=== PATIENT | female | born 1950 | race Caucasian/White ===

== ENCOUNTER 2018-07-10 18:42 | Inpatient (IN) ==
--- NOTE | 2018-07-10 19:28 | XR ---
EXAM DATE: 07/10/2018 7:25 PM EST AGE/SEX: 62 years / Female INDICATIONS: Cough, aspiration. CLINICAL DATA: This is the patient's initial encounter. Patient reports that signs and symptoms have been present for 1 day and indicates a pain score of Nonresponsive. MEDICAL/SURGICAL HISTORY: Non-responsive. Non-responsive. COMPARISON: No prior exams available for comparison. FINDINGS: There is mild diffuse haziness of the right lung. Mild atelectasis seen of both bases. No pneumothora x. Heart size within normal limits. Thoracic aorta is tortuous. CONCLUSION: Mild infiltrate and possible effusion on the right. Mild atelectasis of both bases. Electronically signed by: Hai Clarke MD 07/10/2018 7:26 PM EST
[2018-07-10 19:30] LABS: Baso % (Auto) 0.3 % (0.0-2.0); Hematocrit 44.6 % (35.0-46.0); Hemoglobin 15.1 gm/dL (11.6-15.3); Lymph # (Auto) 0.4 th/mm3 (1.0-4.8); Lymph % (Auto) 4.8 % (9.0-44.0); Mean Corpuscular HGB Conc 33.8 % (32.0-36.0); Mean Corpuscular Hemoglobin 30.9 pg (27.0-34.0); Mean Corpuscular Volume 91.5 fL (80.0-100.0); Mean Platelet Volume 7.7 fL (7.0-11.0); Mono # (Auto) 0.3 th/mm3 (0.0-0.9); Mono % (Auto) 3.4 % (0.0-8.0); Neut # (Auto) 7.9 th/mm3 (1.8-7.7); Neut % (Auto) 91.5 % (16.0-70.0); Platelet Count 180 th/mm3 (150-450); Red Blood Count 4.87 mil/mm3 (4.00-5.30); White Blood Count 8.6 th/mm3 (4.0-11.0)
--- NOTE | 2018-07-10 19:43 | CT ---
EXAM DATE: 07/10/2018 7:39 PM EST AGE/SEX: 62 years / Female INDICATIONS: Seizures CLINICAL DATA: This is the patient's initial encounter. Patient reports that signs and symptoms have been present for 1 day and indicates a pain score of 6/10. MEDICAL/SURGICAL HISTORY: Seizures. None. RADIATION DOSE: 32.68 CTDI (mGy) COMPARISON: No prior exams available for comparison. TECHNIQUE: CT of the head without contrast. Using automated exposure control and adjustment of the mA and/or kV according to patient size, radiation dose was kept as low as reasonably achievable to ob tain optimal diagnostic quality images. DICOM format image data is available electronically for revi ew and comparison. FINDINGS: Cerebrum: The ventricles are normal for age. No evidence of midline shift, mass lesion, hemorrhage o r acute infarction. No extraaxial fluid collections are seen. Posterior Fossa: Moderate bilateral cerebral atrophy. Brainstem is intact. The 4th ventricle is midl ine. The cerebellopontine angle is unremarkable. Extracranial: The visualized portion of the orbits is intact. Mild mucoperiosteal thickening in the left sphenoid sinus. Skull: The calvaria is intact. No evidence of skull fracture. CONCLUSION: 1. Moderate diffuse cerebral atrophy. 2. No acute intracranial abnormality.. Electronically signed by: Adonay Girard MD 07/10/2018 7:41 PM EST
[2018-07-10 19:49] LABS: Albumin 4.1 g/dL (3.4-5.0); Anion Gap 9 meq/L (5-15); Aspartate Aminotransferase 9 U/L (15-37); Blood Urea Nitrogen 11 mg/dL (7-18); Chloride 104 meq/L (98-107); Glomerular Filtration Rate 80 mL/min (>89); Glucose,Random 134 mg/dL (74-106); Potassium 3.9 meq/L (3.5-5.1); Sodium 139 meq/L (136-145)
[2018-07-10 19:50] LABS: Alanine Aminotransferase 17 U/L (10-53)
[2018-07-10 19:51] LABS: Magnesium 2.6 mg/dL (1.5-2.5)
[2018-07-10 19:52] LABS: Alkaline Phosphatase 103 U/L (45-117); Total Protein 7.5 g/dL (6.4-8.2)
--- NOTE | 2018-07-10 19:55 | ED ---
HPI General Chief Complaint: Seizure Stated Complaint: Poss Seziure/evac Time Seen by Provider: 07/10/18 18:56 Source: EMS Mode of arrival: EMS Limitations: other (Postictal) History of Present Illness HPI Narrative: Patient is a 62-year-old female presenting to the emergency department in her home on the ground by her neighbor, she had foam around her mouth. While the neighbor was there patient had 2 more approximately 30 second seizures which were described as grand mal. There was an unknown downtime prior to the neighbor finding patient. Patient has a history of seizures, per EMS patient's dose of Keppra was just adjusted, is uncertain if it was titrated up or down. Patient presents postictal, H&P is limited due to this. Past medical history significant for seizures, atrial fibrillation. MD complaint: Reports seizure Onset (ago): hour(s) Description of Episode: Reports tonic-clonic movement and post-event confusion Witnessed: no (initial seizure was not witnessed) and yes - by bystander (2 were witnessed by neighbor) Seizure History: Reports known seizure disorder and compliant with medication Place: home Treatments prior to arrival: Reports none Related Data Home Medications Medication Instructions Recorded Confirmed Unable to Obtain Home Meds 07/10/18 07/10/18 Allergies Allergy/AdvReac Type Severity Reaction Status Date / Time No Known Allergies Allergy Verified 07/10/18 19:00 Review of Systems ROS Unobtainable ROS Unobtainable: other (limited due to post-ictal state) [facility] Medical History Medical History Atrial fibrillation (Acute) Seizure (Acute) Surgical history unknown (Acute) Social History Social History Smoking Status: Unknown if ever smoked How Often Do You Have a Drink Containing Alcohol: Unable to Obtain Recent Travel in [facility] within the Last 8 Weeks: No Recent Out of Country Travel within the Last 8 Weeks: No Immunization History Tetanus Immunization: Unable to Assess Exam Narrative Exam Narrative: GENERAL: Well-developed, well-nourished, alert female. Presenting in no acute distress. SKIN: Focused skin assessment warm/dry. HEAD: Atraumatic. Normocephalic. EYES: Pupils equal and round. No scleral icterus. No injection or drainage. ENT: No nasal bleeding or discharge. Mucous membranes pink and moist. NECK: Trachea midline. No JVD. CARDIOVASCULAR: Regular rate and rhythm. No murmur appreciated. RESPIRATORY: No accessory muscle use. Clear to auscultation. Breath sounds equal bilaterally. GASTROINTESTINAL: Abdomen soft, non-tender, nondistended. Hepatic and splenic margins not palpable. MUSCULOSKELETAL: No obvious deformities. No clubbing. No cyanosis. No edema. NEUROLOGICAL: Awake and alert. Aphasic, 3 out of 5 accident investigator strength on the left upper extremity. Moving lower extremities, does not follow commands. Left facial droop. PSYCHIATRIC: Appropriate mood and affect; insight and judgment normal. Course Initial Documented Vital Signs Temperature 98.2 F 07/10/18 18:58 Pulse Rate 86 07/10/18 18:58 Respiratory Rate 18 07/10/18 18:58 Blood Pressure 134/72 07/10/18 18:58 Pulse Oximetry 100 07/10/18 18:58 Last Documented Vital Signs Temperature 97.9 F 07/12/18 11:00 Pulse Rate 73 07/12/18 11:00 Respiratory Rate 16 07/12/18 11:00 Blood Pressure 155/98 H 07/12/18 11:00 Pulse Oximetry 98 07/12/18 11:00 Critical Care Time Critical Care Time: Yes Total Critical Care Time: 30 Attestation: Aggregate critical care time was 30 minutes. Time to perform other separately billable procedures was not included in the critical care time. My time did not include minutes spent treating any other patients simultaneously or on activities that did not directly contribute to the patient's treatment. The services I provided to this patient were to treat and/or prevent clinically significant deterioration that could result in: , decompensation, deterioration I provided critical care services requiring my management, as noted below: Chart data review, documentation time, medication orders and management, vital sign assessments/reviewing monitor data, ordering and reviewing lab tests, ordering and interpreting/reviewing x-rays and diagnostic studies, care of the patient and discussion of the patient with the admitting physicians. Medical Decision Making LAURA Attestation LAURA supervised visit: Yes Attestation: I, Dr. Marshall, have reviewed the advance practice practitioner's documentation and am in agreement, met with the patient face to face, made the diagnosis, and the medical decision making was done by me. *My assessment and Findings: Patient is a 62-year-old female who presents the emergency room after she was found down in her house by her neighbor. Patient was apparently unresponsive and was foaming at the mouth. Patient's neighbor then witnessed her have a grand mal seizure which lasted about 30 seconds. Patient presents the emergency room post ictal, she had another seizure episode which lasted about 30 seconds. As per , patient may not be taking her Keppra as prescribed. Patient will be given at 1500 mg loading dose of IV Keppra, she was also given 2 mg of IV Ativan during her seizure episode. Patient will require admission to the hospital for treatment of status epilepticus. In addition, patient was found to have a pneumonia on her x-ray of the chest. There is a mild infiltrate and possible effusion on the right, she has been pancultured and given a dose of azithromycin as well as Rocephin. [facility] Narrative Medical decision making narrative: Patient is a 62-year-old female with a known history of seizures presenting after 2 witnessed seizures and likely third with an unknown downtime. Patient presented with left-sided deficits and facial drooping, she is currently aphasic. CT of the brain ordered to assess acute CVA in addition to labs and imaging including CXR to r/o aspiration. CXR shows mild infiltrate and possible effusion on the right. Pt was started on azithromycin and rocephin. CT of the brain with diffuse atrophy, no acute findings. 1999- pt had witnessed seizure, ativan 2mg IV x 1 dose. called and spoke to RN, he states he doesn't believe she is compliant with medications. Keppra 1500mg IV x 1 dose ordered. Case reviewed with Dr. Rogers who accepts pt to service Patient has not had any further seizure activity. Medical Screen Exam Complete: Yes Emergency Medical Condition: Yes Differential Diagnosis Differential Diagnosis: Seizure disorder versus metabolic abnormality versus Otoniel's palsy versus CVA versus arrhythmia versus other Lab Data Result diagrams: 07/12/18 04:01 07/12/18 04:01 Lab Results 07/10/18 07/10/18 07/10/18 Range/Units 19:16 19:16 19:16 WBC 8.6 (4.0-11.0) th/mm3 RBC 4.87 (4.00-5.30) mil/mm3 Hgb 15.1 (11.6-15.3) gm/dL Hct 44.6 (35.0-46.0) % MCV 91.5 (80.0-100.0) fL MCH 30.9 (27.0-34.0) pg MCHC 33.8 (32.0-36.0) % RDW 14.0 (11.6-17.2) % Plt Count 180 (150-450) th/mm3 MPV 7.7 (7.0-11.0) fL Neut % (Auto) 91.5 H (16.0-70.0) % Lymph % (Auto) 4.8 L (9.0-44.0) % [place] % (Auto) 3.4 (0.0-8.0) % Eos % (Auto) 0.0 (0.0-4.0) % Baso % (Auto) 0.3 (0.0-2.0) % Neut # (Auto) 7.9 H (1.8-7.7) th/mm3 Lymph # (Auto) 0.4 L (1.0-4.8) th/mm3 [place] # (Auto) 0.3 (0.0-0.9) th/mm3 Eos # (Auto) 0.0 (0.0-0.4) th/mm3 Baso # (Auto) 0.0 (0.0-0.2) th/mm3 WBC Differential . Differential Comment Auto diff final PT (9.8-11.6) sec INR Ratio Sodium 139 (136-145) meq/L Potassium 3.9 (3.5-5.1) meq/L Chloride 104 (98-107) meq/L Carbon Dioxide 26.0 (21.0-32.0) meq/L Anion Gap 9 (5-15) meq/L BUN 11 (7-18) mg/dL Creatinine 0.74 (0.50-1.00) mg/dL Estimated GFR 80 L (>89) mL/min POC Glucose (68-110) mg/dl Random Glucose 134 H (74-106) mg/dL Lactic Acid 2.1 H (0.4-2.0) mmol/L Calcium 9.0 (8.5-10.1) mg/dL Magnesium (1.5-2.5) mg/dL Total Bilirubin 0.3 (0.2-1.0) mg/dL AST 9 L (15-37) U/L ALT 17 (10-53) U/L Alkaline Phosphatase 103 (45-117) U/L Total Creatine Kinase (26-192) U/L Troponin I (0.02-0.05) ng/mL Total Protein 7.5 (6.4-8.2) g/dL Albumin 4.1 (3.4-5.0) g/dL Urine Color (Yellw/Straw) Urine Clarity (Clear) Urine pH (5.0-8.5) Ur Specific Norton (1.002-1.035) Urine Protein (Neg-Trace) mg/dL Urine Glucose (UA) (Negative) mg/dL Urine Ketones (Negative) mg/dL Urine Occult Blood (Negative) Urine Nitrate (Negative) Urine Bilirubin (Negative) Urine Urobilinogen (Less than 2) mg/dL Ur Leukocyte Esterase (Negative) Urine RBC (0-3) /hpf Urine WBC (0-5) /hpf Urine Bacteria (None) /hpf Urine Mucus (Occasional) /lpf Ur Microscopic Review Urine Opiates Screen (Neg) Ur Barbiturates Screen (Neg) Ur Amphetamines Screen (Neg) U Benzodiazepines Scrn (Neg) Urine Cocaine Screen (Neg) U Cannabinoids Screen (Neg) Serum Alcohol Less than 3 (0-5) mg/dL 07/10/18 07/10/18 07/10/18 Range/Units 19:16 19:16 19:21 WBC (4.0-11.0) th/mm3 RBC (4.00-5.30) mil/mm3 Hgb (11.6-15.3) gm/dL Hct (35.0-46.0) % MCV (80.0-100.0) fL MCH (27.0-34.0) pg MCHC (32.0-36.0) % RDW (11.6-17.2) % Plt Count (150-450) th/mm3 MPV (7.0-11.0) fL Neut % (Auto) (16.0-70.0) % Lymph % (Auto) (9.0-44.0) % [place] % (Auto) (0.0-8.0) % Eos % (Auto) (0.0-4.0) % Baso % (Auto) (0.0-2.0) % Neut # (Auto) (1.8-7.7) th/mm3 Lymph # (Auto) (1.0-4.8) th/mm3 [place] # (Auto) (0.0-0.9) th/mm3 Eos # (Auto) (0.0-0.4) th/mm3 Baso # (Auto) (0.0-0.2) th/mm3 WBC Differential Differential Comment PT (9.8-11.6) sec INR Ratio Sodium (136-145) meq/L Potassium (3.5-5.1) meq/L Chloride (98-107) meq/L Carbon Dioxide (21.0-32.0) meq/L Anion Gap (5-15) meq/L BUN (7-18) mg/dL Creatinine (0.50-1.00) mg/dL Estimated GFR (>89) mL/min POC Glucose 126 H (68-110) mg/dl Random Glucose (74-106) mg/dL Lactic Acid (0.4-2.0) mmol/L Calcium (8.5-10.1) mg/dL Magnesium 2.6 H (1.5-2.5) mg/dL Total Bilirubin (0.2-1.0) mg/dL AST (15-37) U/L ALT (10-53) U/L Alkaline Phosphatase (45-117) U/L Total Creatine Kinase 164 (26-192) U/L Troponin I Less than 0.02 L (0.02-0.05) ng/mL Total Protein (6.4-8.2) g/dL Albumin (3.4-5.0) g/dL Urine Color (Yellw/Straw) Urine Clarity (Clear) Urine pH (5.0-8.5) Ur Specific Norton (1.002-1.035) Urine Protein (Neg-Trace) mg/dL Urine Glucose (UA) (Negative) mg/dL Urine Ketones (Negative) mg/dL Urine Occult Blood (Negative) Urine Nitrate (Negative) Urine Bilirubin (Negative) Urine Urobilinogen (Less than 2) mg/dL Ur Leukocyte Esterase (Negative) Urine RBC (0-3) /hpf Urine WBC (0-5) /hpf Urine Bacteria (None) /hpf Urine Mucus (Occasional) /lpf Ur Microscopic Review Urine Opiates Screen (Neg) Ur Barbiturates Screen (Neg) Ur Amphetamines Screen (Neg) U Benzodiazepines Scrn (Neg) Urine Cocaine Screen (Neg) U Cannabinoids Screen (Neg) Serum Alcohol (0-5) mg/dL 07/10/18 07/10/18 07/11/18 Range/Units 21:04 21:04 05:28 WBC 6.8 (4.0-11.0) th/mm3 RBC 4.49 (4.00-5.30) mil/mm3 Hgb 13.8 (11.6-15.3) gm/dL Hct 41.2 (35.0-46.0) % MCV 91.8 (80.0-100.0) fL MCH 30.8 (27.0-34.0) pg MCHC 33.6 (32.0-36.0) % RDW 13.9 (11.6-17.2) % Plt Count 175 (150-450) th/mm3 MPV 8.2 (7.0-11.0) fL Neut % (Auto) 75.4 H (16.0-70.0) % Lymph % (Auto) 15.4 (9.0-44.0) % [place] % (Auto) 8.8 H (0.0-8.0) % Eos % (Auto) 0.0 (0.0-4.0) % Baso % (Auto) 0.4 (0.0-2.0) % Neut # (Auto) 5.1 (1.8-7.7) th/mm3 Lymph # (Auto) 1.0 (1.0-4.8) th/mm3 [place] # (Auto) 0.6 (0.0-0.9) th/mm3 Eos # (Auto) 0.0 (0.0-0.4) th/mm3 Baso # (Auto) 0.0 (0.0-0.2) th/mm3 WBC Differential . Differential Comment Auto diff final PT (9.8-11.6) sec INR Ratio Sodium (136-145) meq/L Potassium (3.5-5.1) meq/L Chloride (98-107) meq/L Carbon Dioxide (21.0-32.0) meq/L Anion Gap (5-15) meq/L BUN (7-18) mg/dL Creatinine (0.50-1.00) mg/dL Estimated GFR (>89) mL/min POC Glucose (68-110) mg/dl Random Glucose (74-106) mg/dL Lactic Acid (0.4-2.0) mmol/L Calcium (8.5-10.1) mg/dL Magnesium (1.5-2.5) mg/dL Total Bilirubin (0.2-1.0) mg/dL AST (15-37) U/L ALT (10-53) U/L Alkaline Phosphatase (45-117) U/L Total Creatine Kinase (26-192) U/L Troponin I (0.02-0.05) ng/mL Total Protein (6.4-8.2) g/dL Albumin (3.4-5.0) g/dL Urine Color Yellow (Yellw/Straw) Urine Clarity Clear (Clear) Urine pH 6.0 (5.0-8.5) Ur Specific Norton 1.016 (1.002-1.035) Urine Protein 30 H (Neg-Trace) mg/dL Urine Glucose (UA) Negative (Negative) mg/dL Urine Ketones Trace H (Negative) mg/dL Urine Occult Blood Negative (Negative) Urine Nitrate Negative (Negative) Urine Bilirubin Negative (Negative) Urine Urobilinogen Less than 2 (Less than 2) mg/dL Ur Leukocyte Esterase Negative (Negative) Urine RBC 1 (0-3) /hpf Urine WBC 3 (0-5) /hpf Urine Bacteria Rare H (None) /hpf Urine Mucus Few H (Occasional) /lpf Ur Microscopic Review Not Reportable Urine Opiates Screen Neg (Neg) Ur Barbiturates Screen Neg (Neg) Ur Amphetamines Screen Neg (Neg) U Benzodiazepines Scrn Neg (Neg) Urine Cocaine Screen Neg (Neg) U Cannabinoids Screen Neg (Neg) Serum Alcohol (0-5) mg/dL 07/11/18 07/11/18 07/11/18 Range/Units 05:28 05:28 13:42 WBC (4.0-11.0) th/mm3 RBC (4.00-5.30) mil/mm3 Hgb (11.6-15.3) gm/dL Hct (35.0-46.0) % MCV (80.0-100.0) fL MCH (27.0-34.0) pg MCHC (32.0-36.0) % RDW (11.6-17.2) % Plt Count (150-450) th/mm3 MPV (7.0-11.0) fL Neut % (Auto) (16.0-70.0) % Lymph % (Auto) (9.0-44.0) % [place] % (Auto) (0.0-8.0) % Eos % (Auto) (0.0-4.0) % Baso % (Auto) (0.0-2.0) % Neut # (Auto) (1.8-7.7) th/mm3 Lymph # (Auto) (1.0-4.8) th/mm3 [place] # (Auto) (0.0-0.9) th/mm3 Eos # (Auto) (0.0-0.4) th/mm3 Baso # (Auto) (0.0-0.2) th/mm3 WBC Differential Differential Comment PT 10.6 (9.8-11.6) sec INR 1.0 Ratio Sodium 143 (136-145) meq/L Potassium 2.9 L* D 3.5 (3.5-5.1) meq/L Chloride 109 H (98-107) meq/L Carbon Dioxide 24.5 (21.0-32.0) meq/L Anion Gap 10 (5-15) meq/L BUN 7 (7-18) mg/dL Creatinine 0.52 (0.50-1.00) mg/dL Estimated GFR Greater than 89 (>89) mL/min POC Glucose (68-110) mg/dl Random Glucose 101 (74-106) mg/dL Lactic Acid (0.4-2.0) mmol/L Calcium 8.2 L D (8.5-10.1) mg/dL Magnesium (1.5-2.5) mg/dL Total Bilirubin (0.2-1.0) mg/dL AST (15-37) U/L ALT (10-53) U/L Alkaline Phosphatase (45-117) U/L Total Creatine Kinase (26-192) U/L Troponin I (0.02-0.05) ng/mL Total Protein (6.4-8.2) g/dL Albumin (3.4-5.0) g/dL Urine Color (Yellw/Straw) Urine Clarity (Clear) Urine pH (5.0-8.5) Ur Specific [place] (1.002-1.035) Urine Protein (Neg-Trace) mg/dL Urine Glucose (UA) (Negative) mg/dL Urine Ketones (Negative) mg/dL Urine Occult Blood (Negative) Urine Nitrate (Negative) Urine Bilirubin (Negative) Urine Urobilinogen (Less than 2) mg/dL Ur Leukocyte Esterase (Negative) Urine RBC (0-3) /hpf Urine WBC (0-5) /hpf Urine Bacteria (None) /hpf Urine Mucus (Occasional) /lpf Ur Microscopic Review Urine Opiates Screen (Neg) Ur Barbiturates Screen (Neg) Ur Amphetamines Screen (Neg) U Benzodiazepines Scrn (Neg) Urine Cocaine Screen (Neg) U Cannabinoids Screen (Neg) Serum Alcohol (0-5) mg/dL 07/12/18 07/12/18 Range/Units 04:01 04:01 WBC 3.7 L (4.0-11.0) th/mm3 RBC 4.46 (4.00-5.30) mil/mm3 Hgb 13.6 (11.6-15.3) gm/dL Hct 41.1 (35.0-46.0) % MCV 92.3 (80.0-100.0) fL MCH 30.6 (27.0-34.0) pg MCHC 33.2 (32.0-36.0) % RDW 13.6 (11.6-17.2) % Plt Count 143 L (150-450) th/mm3 MPV 8.2 (7.0-11.0) fL Neut % (Auto) 59.3 (16.0-70.0) % Lymph % (Auto) 31.4 (9.0-44.0) % [place] % (Auto) 8.4 H (0.0-8.0) % Eos % (Auto) 0.2 (0.0-4.0) % Baso % (Auto) 0.7 (0.0-2.0) % Neut # (Auto) 2.2 (1.8-7.7) th/mm3 Lymph # (Auto) 1.2 (1.0-4.8) th/mm3 [place] # (Auto) 0.3 (0.0-0.9) th/mm3 Eos # (Auto) 0.0 (0.0-0.4) th/mm3 Baso # (Auto) 0.0 (0.0-0.2) th/mm3 WBC Differential . Differential Comment Auto diff final PT (9.8-11.6) sec INR Ratio Sodium 141 (136-145) meq/L Potassium 3.3 L (3.5-5.1) meq/L Chloride 109 H (98-107) meq/L Carbon Dioxide 24.6 (21.0-32.0) meq/L Anion Gap 7 (5-15) meq/L BUN 5 L (7-18) mg/dL Creatinine 0.53 (0.50-1.00) mg/dL Estimated GFR Greater than 89 (>89) mL/min POC Glucose (68-110) mg/dl Random Glucose 89 (74-106) mg/dL Lactic Acid (0.4-2.0) mmol/L Calcium 8.1 L (8.5-10.1) mg/dL Magnesium (1.5-2.5) mg/dL Total Bilirubin 0.3 (0.2-1.0) mg/dL AST 12 L (15-37) U/L ALT 11 (10-53) U/L Alkaline Phosphatase 81 (45-117) U/L Total Creatine Kinase (26-192) U/L Troponin I (0.02-0.05) ng/mL Total Protein 6.2 L D (6.4-8.2) g/dL Albumin 3.3 L D (3.4-5.0) g/dL Urine Color (Yellw/Straw) Urine Clarity (Clear) Urine pH (5.0-8.5) Ur Specific Norton (1.002-1.035) Urine Protein (Neg-Trace) mg/dL Urine Glucose (UA) (Negative) mg/dL Urine Ketones (Negative) mg/dL Urine Occult Blood (Negative) Urine Nitrate (Negative) Urine Bilirubin (Negative) Urine Urobilinogen (Less than 2) mg/dL Ur Leukocyte Esterase (Negative) Urine RBC (0-3) /hpf Urine WBC (0-5) /hpf Urine Bacteria (None) /hpf Urine Mucus (Occasional) /lpf Ur Microscopic Review Urine Opiates Screen (Neg) Ur Barbiturates Screen (Neg) Ur Amphetamines Screen (Neg) U Benzodiazepines Scrn (Neg) Urine Cocaine Screen (Neg) U Cannabinoids Screen (Neg) Serum Alcohol (0-5) mg/dL Imaging Data Radiologist's impression: Head CT 07/10/18 19:00 CONCLUSION: 1. Moderate diffuse cerebral atrophy. 2. No acute intracranial abnormality.. Chest X-Ray 07/10/18 19:02 CONCLUSION: Mild infiltrate and possible effusion on the right. Mild atelectasis of both bases. Discharge Plan Discharge Disposition Patient Disposition: ED Admit(ED Internal Use Only) Discharge Condition Condition: Stable Discharge Order Discharge Orders: ED Use Only Admit Order (Routine); Ordered 07/10/18 Ordered By: Genet Marshall Physicians Team ED Provider: Genet Marshall ED Midlevel Provider: Evelyne Lopez Primary Care Provider: UNKNOWN, Attending Provider: Geoffrey Paulino Other Providers: Adilson De Anda ; Fallon Ferrera Status ED Status: Left Department Discharge Information Discharge Date/Time: 07/11/18 02:17
[2018-07-10] MEDS ORDERED: Sod Chloride 0.9% Inj 1,000 ML IV.SIG SCH (20:00)
[2018-07-10] MEDS ORDERED: Azithromycin Inj 500 MG in Sodium Chlor 0.9% Inj 250 ML IV.SIG ONE (20:01)
[2018-07-10] MEDS ORDERED: levETIRAcetam 1000mg/100mL Inj 100 ML IV.SIG ONE (20:07)
--- NOTE | 2018-07-10 21:22 | ECG ---
Date Performed: 07/10/2018 Time Performed: 20:02:27 PTAGE: 62 years EKG: Sinus rhythm NONSPECIFIC ST & T-WAVE ABNORMALITY BORDERLINE ECG NO PREVIOUS TRACING DOCTOR: Swapna De La Cruz Interpretating Date/Time 07/10/2018 21:21:27
[2018-07-10 21:24] LABS: Bacteria,Urine Rare /hpf; Bilirubin,Urine Negative (Negative); Clarity,Urine Clear (Clear); Color,Urine Yellow (Yellw/Straw); Glucose,Urine (UA) Negative (Negative); Leukocyte Esterase,Urine Negative (Negative); Mucus,Urine Few /lpf (Occasional); Nitrite,Urine Negative (Negative); Specific Gravity,Urine 1.016 (1.002-1.035)
[2018-07-10 21:27] LABS: Amphetamine Screen,Urine Neg (Neg); Barbiturate Screen,Urine Neg (Neg); Cannabinoid Screen,Urine Neg (Neg); Cocaine Screen,Urine Neg (Neg)
[2018-07-10 21:51] LABS: Opiate Screen,Urine Neg (Neg)
[2018-07-10] MEDS ORDERED: Dextrose 50% in Water 50 ML Vial IV.PUSH PRN (23:01)
[2018-07-10] MEDS ORDERED: Bisacodyl 10 MG Supp RECTAL PRN (23:01)
[2018-07-10] MEDS: Sod Chloride 0.9% Inj 1,000 ML IV.CONT SCH (23:18)
[2018-07-10] MEDS: Azithromycin Inj 500 MG in Sodium Chlor 0.9% Inj 250 ML IV.SIG SCH (23:53)
--- NOTE | 2018-07-10 23:57 | P.HP ---
History of Present Illness Primary Care Physician: UNKNOWN Chief Complaint: seizures History of Present Illness: 62-year-old female with history of seizures, atrial fibrillation on unknown anticoagulation, presents after being found on the ground by her neighbor. History is limited as the patient is postictal, drowsy, unable to provide any history. Per HEALTH ANALYST who discussed with the patient's , he reports a history of seizures, reportedly on unknown dose of Keppra. travels for work and questions patient's compliance with Keppra. He also reports that she is on an unknown anticoagulation for her atrial fibrillation. Reportedly the patient was found on the ground by her neighbor with foam around the mouth. The neighbor then also witnessed 2 more seizure episodes that lasted 30 seconds each, described as grand mal tonic-clonic movements. No other history is reported. Review of systems limited. Most of medical history obtained from EMR. Inpatient Certification: I certify that the inpatient services were ordered in accordance with Medicare regulations governing the order. This includes certification that hospital inpatient services are reasonable and necessary and in the case of services not specified as inpatient-only under 42 CFR 419.22(n), that they are appropriately provided as inpatient services in accordance to with the 2-midnight benchmark under 43 CFR 412.3(e) Estimated Total Length of Stay (Days): 3 Plans for Post Hospital Care: Home Review of Systems unobtainable due to mental status PMFSH - History History Provided By: Significant Other, Medical Record - Medical / Surgical Hx Neg / Unobtainable Medical Problems Denied: Unable to Obtain Surgical History: Unable to Obtain - Medical History Medical History: Medical History (Last Reviewed 07/10/18 @ 23:39 by aKtja Belcher) Atrial fibrillation Seizure Surgical history unknown - Family History Family History: Family History (Last Updated 07/10/18 @ 23:44 by Katja Belcher) Other Unknown family medical history - Social History I have reviewed the patient's Social History: Yes - Tobacco History Smoking Status: Unknown if ever smoked - Alcohol History How Often Do You Have a Drink Containing Alcohol: Unable to Obtain - Travel History Recent Travel in the [place] Within the Last 8 Weeks: No Recent Travel Out of the Country Within the Last 8 Weeks: No - Immunization History Tetanus Immunization: Unable to Assess Medications and Allergies Active Medications: Active Medications Acetaminophen (Tylenol) 650 mg PO Q4H PRN PRN Reason: headache/fever/pain1-4 Al Hydroxide/Mg Hydroxide (Milk Of Magnesia Liq) 30 ml PO Q12H PRN PRN Reason: Mild Constipation Bisacodyl (Dulcolax Supp) 10 mg RECTAL DAILY PRN PRN Reason: SEVERE CONSITIPATION Dextrose (D50w Vial) 50 ml IV.PUSH UNSCH PRN PRN Reason: PER HYPOGLYCEMIA PROTOCOL Glucagon (Glucagon Inj) 1 mg OTHER PRN PRN PRN Reason: for Hypoglycemia Protocol Sodium Chloride (Ns Inj) 1,000 mls @ 100 mls/hr IV.CONT .Q10H BIN Last Admin: 07/10/18 23:18 Dose: 100 mls/hr Lactulose (Lactulose Liq) 30 ml PO DAILY PRN PRN Reason: SEVERE CONSITIPATION Levetiracetam (Keppra) 500 mg PO BID BIN Lorazepam (Ativan Inj) 1 mg IV.PUSH Q10M PRN PRN Reason: SEE LABEL COMMENTS Ondansetron HCl (Zofran Inj) 4 mg IV.PUSH Q6H PRN PRN Reason: NAUSEA OR VOMITING Senna/Docusate Sodium (Milana-Colace) 1 tab PO BID [facility] Sennosides (Senokot) 17.2 mg PO Q12H PRN PRN Reason: Moderate Constipation Sodium Chloride (Ns Flush) 2 ml IV.FLUSH PRN PRN PRN Reason: FLUSH AFTER USING IV ACCESS Sodium Chloride (Ns Flush) 2 ml IV.FLUSH BID [facility] Allergies Allergy/AdvReac Type Severity Reaction Status Date / Time No Known Allergies Allergy Verified 07/10/18 19:00 Home Medications Medication Instructions Recorded Confirmed Type Unable to Obtain Home Meds 07/10/18 07/10/18 History Exam Vital signs: Vital Signs 07/10/18 18:58 07/10/18 19:02 07/10/18 19:13 Temperature 98.2 F Pulse Rate 86 84 Respiratory Rate 18 16 Blood Pressure 134/72 169/87 H Pulse Oximetry 100 98 98 07/10/18 20:02 07/10/18 20:57 07/10/18 21:46 Temperature Pulse Rate 81 78 83 Respiratory Rate 16 24 26 H Blood Pressure 127/60 148/87 H 159/82 H Pulse Oximetry 98 100 100 07/10/18 22:26 07/10/18 23:00 Temperature Pulse Rate 82 83 Respiratory Rate 24 Blood Pressure 164/90 H 165/89 H Pulse Oximetry 100 Intake & Output 07/10/18 07/10/18 07/11/18 06:59 18:59 06:59 Intake Total 1555 / 1555 Balance 1555 / 1555 Weight 65.771 kg Intake: IV 1555 / 1555 Azithromycin Inj 500 MG In NS 250 / 250 Inj 250 ML @ 250 mls/hr IV.SIG ONCE ONE Rx#:[id number] NS Inj 1,000 ML @ 1000 mls/hr 1000 / 1000 IV.SIG BOLUS BIN Rx#:[id number] Rocephin Inj 1,000 MG In NS Inj 100 / 100 100 ML @ 200 mls/hr IV.SIG ONCE ONE Rx#:[id number] Keppra 1000 mg/100 mL Premix 100 / 100 100 ML @ 400 mls/hr IV.SIG ONCE ONE Rx#:[id number] Keppra Inj 500 MG In NS Inj 100 105 / 105 ML @ 400 mls/hr IV.SIG ONCE ONE Rx#:[id number] Narrative: GENERAL: Well-nourished, well-developed female patient in [facility]. SKIN: Warm and dry. No rash. HEENT: Normocephalic. Atraumatic. Pupils equal and round. Mucous membranes pink and moist. NECK: Supple. Trachea midline. CARDIOVASCULAR: Regular rate and rhythm. No murmur appreciated. RESPIRATORY: No accessory muscle use. Clear to auscultation. Breath sounds equal bilaterally. GASTROINTESTINAL: Abdomen soft, non-tender, nondistended. Normoactive bowel sounds x4. MUSCULOSKELETAL: No obvious deformities. Extremities without clubbing, cyanosis , or edema. NEUROLOGICAL: Drowsy/sedated. No obvious cranial nerve deficits. Results - Labs CBC & Chem 7: 07/10/18 19:16 07/10/18 19:16 Labs: Laboratory Results - last 24 hr 07/10/18 07/10/18 07/10/18 19:16 19:16 19:16 WBC 8.6 RBC 4.87 Hgb 15.1 Hct 44.6 MCV 91.5 MCH 30.9 MCHC 33.8 RDW 14.0 Plt Count 180 MPV 7.7 Neut % (Auto) 91.5 H Lymph % (Auto) 4.8 L Park % (Auto) 3.4 Eos % (Auto) 0.0 Baso % (Auto) 0.3 Neut # (Auto) 7.9 H Lymph # (Auto) 0.4 L Park # (Auto) 0.3 Eos # (Auto) 0.0 Baso # (Auto) 0.0 WBC Differential . Differential Comment Auto diff final Sodium 139 Potassium 3.9 Chloride 104 Carbon Dioxide 26.0 Anion Gap 9 BUN 11 Creatinine 0.74 Estimated GFR 80 L POC Glucose Random Glucose 134 H Lactic Acid 2.1 H Calcium 9.0 Magnesium Total Bilirubin 0.3 AST 9 L ALT 17 Alkaline Phosphatase 103 Total Creatine Kinase Troponin I Total Protein 7.5 Albumin 4.1 Urine Color Urine Clarity Urine pH Ur Specific [place] Urine Protein Urine Glucose (UA) Urine Ketones Urine Occult Blood Urine Nitrate Urine Bilirubin Urine Urobilinogen Ur Leukocyte Esterase Urine RBC Urine WBC Urine Bacteria Urine Mucus Ur Microscopic Review Urine Opiates Screen Ur Barbiturates Screen Ur Amphetamines Screen U Benzodiazepines Scrn Urine Cocaine Screen U Cannabinoids Screen Serum Alcohol Less than 3 07/10/18 07/10/18 07/10/18 19:16 19:16 19:21 WBC RBC Hgb Hct MCV MCH MCHC RDW Plt Count MPV Neut % (Auto) Lymph % (Auto) Park % (Auto) Eos % (Auto) Baso % (Auto) Neut # (Auto) Lymph # (Auto) Park # (Auto) Eos # (Auto) Baso # (Auto) WBC Differential Differential Comment Sodium Potassium Chloride Carbon Dioxide Anion Gap BUN Creatinine Estimated GFR POC Glucose 126 H Random Glucose Lactic Acid Calcium Magnesium 2.6 H Total Bilirubin AST ALT Alkaline Phosphatase Total Creatine Kinase 164 Troponin I Less than 0.02 L Total Protein Albumin Urine Color Urine Clarity Urine pH Ur Specific [place] Urine Protein Urine Glucose (UA) Urine Ketones Urine Occult Blood Urine Nitrate Urine Bilirubin Urine Urobilinogen Ur Leukocyte Esterase Urine RBC Urine WBC Urine Bacteria Urine Mucus Ur Microscopic Review Urine Opiates Screen Ur Barbiturates Screen Ur Amphetamines Screen U Benzodiazepines Scrn Urine Cocaine Screen U Cannabinoids Screen Serum Alcohol 07/10/18 07/10/18 21:04 21:04 WBC RBC Hgb Hct MCV MCH MCHC RDW Plt Count MPV Neut % (Auto) Lymph % (Auto) Park % (Auto) Eos % (Auto) Baso % (Auto) Neut # (Auto) Lymph # (Auto) Park # (Auto) Eos # (Auto) Baso # (Auto) WBC Differential Differential Comment Sodium Potassium Chloride Carbon Dioxide Anion Gap BUN Creatinine Estimated GFR POC Glucose Random Glucose Lactic Acid Calcium Magnesium Total Bilirubin AST ALT Alkaline Phosphatase Total Creatine Kinase Troponin I Total Protein Albumin Urine Color Yellow Urine Clarity Clear Urine pH 6.0 Ur Specific [place] 1.016 Urine Protein 30 H Urine Glucose (UA) Negative Urine Ketones Trace H Urine Occult Blood Negative Urine Nitrate Negative Urine Bilirubin Negative Urine Urobilinogen Less than 2 Ur Leukocyte Esterase Negative Urine RBC 1 Urine WBC 3 Urine Bacteria Rare H Urine Mucus Few H Ur Microscopic Review Not Reportable Urine Opiates Screen Neg Ur Barbiturates Screen Neg Ur Amphetamines Screen Neg U Benzodiazepines Scrn Neg Urine Cocaine Screen Neg U Cannabinoids Screen Neg Serum Alcohol - Imaging Impressions Head CT 07/10/18 19:00 CONCLUSION: 1. Moderate diffuse cerebral atrophy. 2. No acute intracranial abnormality.. Chest X-Ray 07/10/18 19:02 CONCLUSION: Mild infiltrate and possible effusion on the right. Mild atelectasis of both bases. Caprini VTE Risk Assessment Caprini VTE Risk Assessment: Moderate/High Risk (score >= 2) Caprini Risk Assessment Model: Point Value = 1 Point Value = 2 Point Value = 3 Point Value = 5 Age 41-60 Minor surgery BMI > 25 kg/m2 Swollen legs Varicose veins or History of unexplained or recurrent spontaneous Oral contraceptives or hormone replacement Sepsis (< 1 month) Serious lung disease, including pneumonia (< 1 month) Abnormal pulmonary function Acute myocardial infarction Congestive heart failure (< 1 month) History of inflammatory bowel disease Medical patient at bed rest Age 61-74 Arthroscopic surgery Major open surgery (> 45 min) Laparoscopic surgery (> 45 min) Malignancy Confined to bed (> 72 hours) Immobilizing plaster cast Central venous access Age >= 75 History of VTE Family history of VTE Factor V Leiden Prothrombin [id number] Lupus anticoagulant Anticardiolipin antibodies Elevated serum homocysteine Heparin-induced thrombocytopenia Other congenital or acquired thrombophilia Stroke (< 1 month) Elective arthroplasty Hip, pelvis, or leg fracture Acute spinal cord injury (< 1 month) Prophylaxis Regimen: Total Risk Factor Score Risk Level Prophylaxis Regimen 0-1 Low Early ambulation 2 Moderate Order ONE of the following: *Sequential Compression Device (SCD) *Heparin 5000 units SQ BID 3-4 Higher Order ONE of the following medications: *Heparin 5000 units SQ TID *Enoxaparin/Lovenox 40 mg SQ daily (WT < 150 kg, CrCl > 30 mL/min) *Enoxaparin/Lovenox 30 mg SQ daily (WT < 150 kg, CrCl > 10-29 mL/min) *Enoxaparin/Lovenox 30 mg SQ BID (WT < 150 kg, CrCl > 30 mL/min) AND/OR *Sequential Compression Device (SCD) 5 or more Highest Order ONE of the following medications: *Heparin 5000 units SQ TID (Preferred with Epidurals) *Enoxaparin/Lovenox 40 mg SQ daily (WT < 150 kg, CrCl > 30 mL/min) *Enoxaparin/Lovenox 30 mg SQ daily (WT < 150 kg, CrCl > 10-29 mL/min) *Enoxaparin/Lovenox 30 mg SQ BID (WT < 150 kg, CrCl > 30 mL/min) AND *Sequential Compression Device (SCD) Assessment and Plan - Plan 62-year-old female with history of seizures, atrial fibrillation on unknown anticoagulation, presents after being found on the ground by her neighbor and after 2 witnessed seizures. Recurrent seizures: Acute, found altered and foaming at the mouth by neighbors, then 2 witnessed tonic-clonic seizures. Questionable compliance with home Keppra per . also reports patient is usually encephalopathic and aphasic for up to 2 days post seizures in the past. -Head CT reviewed, no acute findings -UA and UDS unremarkable -check Keppra level -check EEG -S/p total 1500mg IV Keppra bolus in ED -Will start on IV Keppra 500mg bid for now, until RN can verify home dosing of Keppra (transition to po when awake and tolerating oral intake) -IV Ativan prn seizure -Seizure precautions, neuro checks -PT consult in am -Consider neurology consult if any further seizures during hospitalization Possible Community Acquired Pneumonia with Atelectasis: unable to obtain any history from the patient regarding symptoms -CXR reviewed, shows mild infiltrate and possible effusion on the right -Will start on IV Rocephin/Azithro for now, consider discontinuing if remains afebrile/asymptomatic -will order incentive spirometer when patient is more awake to follow instructions Atrial Fibrillation: chronic, reports the patient is supposed to be on blood thinner -discussed with RN to contact patient's family/pharmacy/PCP to obtain home med list -check INR -give heparin sq for now -monitor on telemetry DVT Prophylaxis: Heparin sq
[2018-07-11] MEDS: Heparin - SQ 10,000 UNITS/ML Vial SQ SCH ×3 (06:28→22:06)
[2018-07-11 06:48] LABS: Prothrombin Time 10.6 sec (9.8-11.6)
[2018-07-11 07:01] LABS: Anion Gap 10 meq/L (5-15); Blood Urea Nitrogen 7 mg/dL (7-18); Calcium 8.2 mg/dL (8.5-10.1); Carbon Dioxide 24.5 meq/L (21.0-32.0); Chloride 109 meq/L (98-107); Glomerular Filtration Rate Greater Than 89 mL/min (>89); Glucose,Random 101 mg/dL (74-106); Sodium 143 meq/L (136-145)
[2018-07-11 07:03] LABS: Baso % (Auto) 0.4 % (0.0-2.0); Hematocrit 41.2 % (35.0-46.0); Hemoglobin 13.8 gm/dL (11.6-15.3); Lymph % (Auto) 15.4 % (9.0-44.0); Mean Corpuscular HGB Conc 33.6 % (32.0-36.0); Mean Corpuscular Hemoglobin 30.8 pg (27.0-34.0); Mean Corpuscular Volume 91.8 fL (80.0-100.0); Mean Platelet Volume 8.2 fL (7.0-11.0); Mono # (Auto) 0.6 th/mm3 (0.0-0.9); Mono % (Auto) 8.8 % (0.0-8.0); Neut # (Auto) 5.1 th/mm3 (1.8-7.7); Neut % (Auto) 75.4 % (16.0-70.0); Platelet Count 175 th/mm3 (150-450); Red Blood Count 4.49 mil/mm3 (4.00-5.30); Red Cell Distribution Width 13.9 % (11.6-17.2); White Blood Count 6.8 th/mm3 (4.0-11.0)
[2018-07-11 07:17] LABS: Potassium 2.9 meq/L (3.5-5.1)
[2018-07-11] MEDS ORDERED: levETIRAcetam 500 MG Tablet PO SCH (09:00)
[2018-07-11] MEDS: Potassium Chlor 20 mEq Premix 20 MEQ/100 ML PIGGYBACK IV.SIG SCH ×2 (09:33→11:37)
[2018-07-11] MEDS: Sod Chloride 0.9% Inj 1,000 ML IV.CONT SCH ×2 (09:34→21:17)
[2018-07-11] MEDS: Senna/Docusate Sodium 8.6/50 MG Tablet PO SCH ×2 (09:34→20:29)
--- NOTE | 2018-07-11 12:16 | MG ---
cc: Rafat Christopher MD, PhD TEST NUMBER: [id number] TECHNIQUE: A 17-channel EEG. DESCRIPTION: The background rhythm shows some left hemisphere slowing, occasionally delta frequency. There is sharp activity as well over the left hemisphere. Occasional muscle artifact is identified. INTERPRETATION: Abnormal study. Focal slowing is identified over the left hemisphere. Recommend correlating with an imaging study to rule out structural lesion. There are sharp activity identified over that area, which could be associated with a convulsive tendency. Clinical correlation is advised. Rafat Christopher MD, PhD SHAREE/ , 12:04 PM , 12:08 PM
--- NOTE | 2018-07-11 12:20 | P.PNIM ---
Subjective Interval history: Potassium level is low this morning. Patient remains postictal with mild lethargy. She is able to converse. Physical Exam Vital signs: Last Vital Signs Temp 97.8 F 07/11/18 03:00 Pulse 71 07/11/18 06:00 Resp 16 07/11/18 03:00 BP 149/70 H 07/11/18 03:00 Pulse Ox 98 07/11/18 10:06 Intake & Output 07/09/18 07/10/18 07/11/18 07/12/18 06:59 06:59 06:59 06:59 Intake Total 1555 / 1555 1205 / 1205 Output Total 1300 / 1300 Balance 255 / 255 1205 / 1205 Weight 66.8 kg Narrative: GENERAL: NAD, A&Ox3, lethargic HEAD: Normocephalic. NECK: Supple, trachea midline. No lymphadenopathy. EYES: No scleral icterus. No injection or drainage. CARDIOVASCULAR: Regular rate and rhythm without murmurs, gallops, or rubs. RESPIRATORY: Breath sounds equal bilaterally. No accessory muscle use. GASTROINTESTINAL: Abdomen soft, non-tender, nondistended. MUSCULOSKELETAL: No cyanosis, or edema. SKIN: Warm and dry. NEURO: No focal neurological deficits. Urinary Catheter Management Indwelling Urethral Catheter: Cath placed during this visit: yes Urethral indwelling: No Insertion date: 07/11/18 Insertion time: 21:45 Results Labs CBC & Chem 7: 07/11/18 05:28 07/11/18 05:28 Labs: Microbiology 07/10/18 20:40 Blood - Peripheral Aerobic Blood Culture - Preliminary No growth in 1 day 07/10/18 20:40 Blood - Peripheral Anaerobic Blood Culture - Preliminary No growth in 1 day 07/10/18 20:35 Blood - Peripheral Aerobic Blood Culture - Preliminary No growth in 1 day 07/10/18 20:35 Blood - Peripheral Anaerobic Blood Culture - Preliminary No growth in 1 day Imaging Imaging: Impressions Head CT 07/10/18 19:00 CONCLUSION: 1. Moderate diffuse cerebral atrophy. 2. No acute intracranial abnormality.. Chest X-Ray 07/10/18 19:02 CONCLUSION: Mild infiltrate and possible effusion on the right. Mild atelectasis of both bases. Assessment and Plan Plan 62-year-old female with history of seizures, atrial fibrillation on unknown anticoagulation, presents after being found on the ground by her neighbor and after 2 witnessed seizures. Breakthrough seizures Recurrent seizures Noncompliance with Keppra Keppra reinitiated Continue Keppra IV for now Monitor for any further seizure activity Neurology following Community-acquired pneumonia Atelectasis Continue Rocephin Continue azithromycin Follow clinically Atrial fibrillation Continue heparin Follow on telemetry DVT prophylaxis Heparin
[2018-07-11] MEDS: Acetaminophen 325 MG Tablet PO PRN ×2 (18:36→22:11)
[2018-07-11] MEDS: Azithromycin Inj 500 MG in Sodium Chlor 0.9% Inj 250 ML IV.SIG SCH (20:29)
[2018-07-12 04:37] LABS: Baso % (Auto) 0.7 % (0.0-2.0); Eos % (Auto) 0.2 % (0.0-4.0); Hematocrit 41.1 % (35.0-46.0); Hemoglobin 13.6 gm/dL (11.6-15.3); Lymph # (Auto) 1.2 th/mm3 (1.0-4.8); Lymph % (Auto) 31.4 % (9.0-44.0); Mean Corpuscular HGB Conc 33.2 % (32.0-36.0); Mean Corpuscular Hemoglobin 30.6 pg (27.0-34.0); Mean Corpuscular Volume 92.3 fL (80.0-100.0); Mean Platelet Volume 8.2 fL (7.0-11.0); Mono # (Auto) 0.3 th/mm3 (0.0-0.9); Mono % (Auto) 8.4 % (0.0-8.0); Neut # (Auto) 2.2 th/mm3 (1.8-7.7); Neut % (Auto) 59.3 % (16.0-70.0); Platelet Count 143 th/mm3 (150-450); Red Blood Count 4.46 mil/mm3 (4.00-5.30); Red Cell Distribution Width 13.6 % (11.6-17.2); White Blood Count 3.7 th/mm3 (4.0-11.0)
[2018-07-12 05:13] LABS: Alanine Aminotransferase 11 U/L (10-53); Albumin 3.3 g/dL (3.4-5.0); Alkaline Phosphatase 81 U/L (45-117); Anion Gap 7 meq/L (5-15); Aspartate Aminotransferase 12 U/L (15-37); Blood Urea Nitrogen 5 mg/dL (7-18); Calcium 8.1 mg/dL (8.5-10.1); Carbon Dioxide 24.6 meq/L (21.0-32.0); Chloride 109 meq/L (98-107); Glomerular Filtration Rate Greater Than 89 mL/min (>89); Glucose,Random 89 mg/dL (74-106); Potassium 3.3 meq/L (3.5-5.1); Sodium 141 meq/L (136-145); Total Protein 6.2 g/dL (6.4-8.2)
[2018-07-12] MEDS: Heparin - SQ 10,000 UNITS/ML Vial SQ SCH ×3 (05:37→21:05)
[2018-07-12] MEDS: Acetaminophen 325 MG Tablet PO PRN (05:43)
[2018-07-12] MEDS: Sod Chloride 0.9% Inj 1,000 ML IV.CONT SCH (05:43)
[2018-07-12] MEDS: Senna/Docusate Sodium 8.6/50 MG Tablet PO SCH ×2 (08:36→21:05)
--- NOTE | 2018-07-12 10:51 | P.PNIM ---
Subjective Interval history: Postictal state has resolved. EEG shows abnormality, no focal defect such as bleed or mass and brain study done recently. No further seizure activity. Today patient is able to provide history. She denies missing any of her Keppra dosing. See chest he follows with Dr. Christopher as an outpatient. Physical Exam Vital signs: Last Vital Signs Temp 97.5 F L 07/12/18 08:00 Pulse 66 07/12/18 08:00 Resp 18 07/12/18 08:00 BP 157/92 H 07/12/18 08:00 Pulse Ox 97 07/12/18 09:41 Intake & Output 07/10/18 07/11/18 07/12/18 07/13/18 06:59 06:59 06:59 06:59 Intake Total 1555 / 1555 3130 / 3130 1105 / 1105 Output Total 1300 / 1300 2430 / 2430 Balance 255 / 255 700 / 700 1105 / 1105 Weight 66.8 kg 67.8 kg Narrative: GENERAL: NAD, A&Ox3, lethargic HEAD: Normocephalic. NECK: Supple, trachea midline. No lymphadenopathy. EYES: No scleral icterus. No injection or drainage. CARDIOVASCULAR: Regular rate and rhythm without murmurs, gallops, or rubs. RESPIRATORY: Breath sounds equal bilaterally. No accessory muscle use. GASTROINTESTINAL: Abdomen soft, non-tender, nondistended. MUSCULOSKELETAL: No cyanosis, or edema. SKIN: Warm and dry. NEURO: No focal neurological deficits. Urinary Catheter Management Indwelling Urethral Catheter: Cath placed during this visit: yes Urethral indwelling: No Insertion date: 07/11/18 Insertion time: 21:45 Results Labs CBC & Chem 7: 07/12/18 04:01 07/12/18 04:01 Labs: Microbiology 07/10/18 20:40 Blood - Peripheral Aerobic Blood Culture - Preliminary No growth in 1 day 07/10/18 20:40 Blood - Peripheral Anaerobic Blood Culture - Preliminary No growth in 1 day 07/10/18 20:35 Blood - Peripheral Aerobic Blood Culture - Preliminary No growth in 1 day 07/10/18 20:35 Blood - Peripheral Anaerobic Blood Culture - Preliminary No growth in 1 day Assessment and Plan Plan 62-year-old female with history of seizures, atrial fibrillation on unknown anticoagulation, presents after being found on the ground by her neighbor and after 2 witnessed seizures. Postictal state has resolved. Patient appears at her regular baseline during her visit today. She denies missing any Keppra dosing which was the initial concern for the cause of her seizures. As an outpatient C says that she follows with Dr. Christopher. Physical therapy initiated for today. Neurology consulted for possible treatment adjustments. Breakthrough seizures Recurrent seizures Noncompliance with Keppra Keppra reinitiated Continue Keppra IV for now Monitor for any further seizure activity Neurology consulted Community-acquired pneumonia Atelectasis Continue Rocephin Continue azithromycin Follow clinically Atrial fibrillation Continue heparin Follow on telemetry DVT prophylaxis Heparin
--- NOTE | 2018-07-12 13:27 | MB ---
cc: Fallon Ferrera MD DATE: 07/12/2018 REASON FOR CONSULTATION: Seizures. This is a 68-year-old woman with a history of epilepsy. She states since age 21, history of atrial fibrillation, came in, she was found on the ground by a neighbor. She states her is a truck driver salesperson and he is not home. She lives alone otherwise. She is still somewhat confused and postictal. She thinks she is at [place]. She states that she has never seen a neurologist. She saw Dr. Christopher here at the hospital; however, I cannot find any notes. I am thinking maybe she came in as a Rose Márquez. Apparently, they were witnessed seizures with generalized tonic-clonic movements. She states she takes Keppra. Did not tolerate Depakote or Dilantin. PAST MEDICAL HISTORY: As outlined. SOCIAL HISTORY: Unknown if smokes or drinks really, but she states she is . Her is a truck driver salesperson. PHYSICAL EXAMINATION: VITAL SIGNS: Temperature is 97.9, pulse 50, respiratory rate 16, blood pressure 155/98. GENERAL: She is awake and alert. She knows her name. She knows that she is in the hospital, but she thought she was in [place]. HEENT: Her pupils are reactive. Face is symmetric. She may have bitten her top part of the lip. Motor thomas, no tremor. No significant weakness. Gait is withheld. LABORATORY DATA: Reviewed. White count 3.7, platelets 143,000. Coag panel normal. Chemistries she had a potassium of 2.9 yesterday, today it is 3.3. Albumin 3.3, as well. LFTs are within normal range really. Calcium 8.1. Lactic acid 2.1, slightly elevated. Urine really unremarkable. Tox screen was negative. IMAGING: CT head did not show anything acute except moderate atrophy. EEG showed slowing over the left hemisphere concerning for structural lesion and some sharp activity of the same area, left side, concerning for epileptic potentials. IMPRESSION: Breakthrough seizures. Question of compliance with Keppra. She is on 500 twice a day. She was loaded with a gram continued on 500 b.i.d. Keppra level is still pending. I am going to go ahead and get an MRI of the brain to make sure there are not any structural lesions and add 50 mg twice daily of Vimpat to her current Keppra dose. Maintain seizure precautions, no driving for 6 months and needs to be followed up as an outpatient with neurology. Continue current care. If any breakthrough witnessed seizures, Ativan should be used p.r.n. I will go ahead and order the MRI and the Vimpat. Continue her Keppra for now. Fallon Ferrera MD DF/ct , 12:59 PM , 01:08 PM
[2018-07-12] MEDS: Lacosamide 50 MG Tablet PO SCH ×2 (15:57→21:05)
--- NOTE | 2018-07-12 17:30 | MR ---
EXAM DATE: 07/12/2018 5:26 PM EST AGE/SEX: 68 years / Female INDICATIONS: Seizures. CLINICAL DATA: This is the patient's subsequent encounter. Patient reports that signs and symptoms h ave been present for 1 day and indicates a pain score of 0/10. MEDICAL/SURGICAL HISTORY: Seizures. None. COMPARISON: [facility], MR HEAD W/O CONTRAST, 05/07/2018. . TECHNIQUE: Multiplanar, multisequence examination of the brain was performed without contrast. FINDINGS: Cerebrum: The ventricles are normal for age. No evidence of midline shift, mass lesion, hemorrhage or acute infarction. No extraaxial fluid collections are seen. The pituitary gland and suprasellar cistern are normal in configuration. White Matter: No significant signal abnormalities are seen in the white matter. Posterior Fossa: There is diffuse atrophy of the cerebellar soft tissues similar to May. Diffusion Imaging: No focal areas of restricted diffusion are seen. No evidence of acute infarction . Extracranial: The visualized portions of the orbits and paranasal sinuses are unremarkable except fo r left sphenoidal sinus disease CONCLUSION: 1. Posterior fossa atrophy. No evidence of acute stroke, hemorrhage, mass or mass effect. Electronically signed by: Elieser Crowell MD 07/12/2018 5:29 PM EST
[2018-07-12] MEDS: Azithromycin Inj 500 MG in Sodium Chlor 0.9% Inj 250 ML IV.SIG SCH (21:05)
[2018-07-12] MEDS ORDERED: Ibuprofen 400 MG Tablet PO ONE (22:01)
[2018-07-13] MEDS: Heparin - SQ 10,000 UNITS/ML Vial SQ SCH ×2 (05:13→13:39)
[2018-07-13] MEDS: Senna/Docusate Sodium 8.6/50 MG Tablet PO SCH (08:04)
[2018-07-13] MEDS: Lacosamide 50 MG Tablet PO SCH (08:04)
--- NOTE | 2018-07-13 08:50 | P.DCO ---
Physical Therapy Order: Evaluate and treat, Improve ambulation and Strength and gait training Home Health Nursing Order: Medical education, Signs/symptoms of disease process and Nursing assessment with vital signs Case Management Consult Case Management Consult-Home Health: Yes I have seen patient Tammy Birmingham on 07/13/18. My clinical findings support the need for the requested home health care services because: Limited mobility due to disease progression, Deconditioned with increased weakness and Limited ability to care for self I certify that my clinical findings support that this patient is homebound because: Unsteady gait/balance, Unsafe to leave home unassisted and Unable to use public transportation
[2018-07-13 12:27] VITALS: RESP 18
[2018-07-13] MEDS ORDERED: Azithromycin 250 MG Tablet PO SCH (13:00)
--- NOTE | 2018-07-13 13:09 | P.DS ---
DS: Providers Date of admission: 07/10/18 22:01 Primary care physician: UNKNOWN Consults: 07/12/18 08:33 HUB Only Consult Order Routine Consulting Provider: Adilson De Anda 07/12/18 10:52 Consult to Neurology Routine Consulting Provider: Fallon Ferrera Preferred Carpenter Helper [employer]:: Rafat Christopher Patient known to:: Rafat Christopher Reason for Consultation: Breakthrough Seizure (patient denies noncompliance with current outpatient Keppra dosing) Notified:: Office Spoke with:: JANKI Date Notified:: 07/12/18 Time Notified:: 10:56 Ordering Provider: AR Brief History from admission: 62-year-old female with history of seizures, atrial fibrillation on unknown anticoagulation, presents after being found on the ground by her neighbor. History is limited as the patient is postictal, drowsy, unable to provide any history. Per STEAM PRESS OPERATOR who discussed with the patient 's , he reports a history of seizures, reportedly on unknown dose of Keppra. travels for work and questions patient's compliance with Keppra. He also reports that she is on an unknown anticoagulation for her atrial fibrillation. Reportedly the patient was found on the ground by her neighbor with foam around the mouth. The neighbor then also witnessed 2 more seizure episodes that lasted 30 seconds each, described as grand mal tonic- clonic movements. No other history is reported. Review of systems limited. Most of medical history obtained from EMR. DS: Summary Mrs. Birmingham is a 68-year-old female. She came in secondary to seizures. Altered mental status was present for about 24-48 hours after her seizure activity. Evidence of pneumonia was also discovered. Once patient was awake enough to provide history she did report that she feels she has been compliant with her Keppra. Original plan had been just to treat with Keppra as noncompliance was suspected. However, given the fact that she says she has been taking her Keppra regularly her neurologist was consulted and Vimpat has been added as an additional treatment. Patient is feeling well today. She is functioning at baseline. She is medically stable and cleared for discharge home today on Vimpat and Keppra. She is also continuing an antibiotic for coverage of a suspected community-acquired pneumonia. Time Spent with Patient Total time spent providing and/or coordinating discharge services: Results Labs on day of discharge: Labs from last 24 hours 07/11/18 00:27 Levetiracetam 34.7 Preliminary micro results at discharge 07/10/18 20:40 Aerobic Blood Culture - Preliminary Blood - Peripheral No growth in 3 days Anaerobic Blood Culture - Preliminary No growth in 3 days 07/10/18 20:35 Aerobic Blood Culture - Preliminary Blood - Peripheral No growth in 3 days Anaerobic Blood Culture - Preliminary No growth in 3 days Impressions ITS Impressions Head CT 07/10/18 19:00 CONCLUSION: 1. Moderate diffuse cerebral atrophy. 2. No acute intracranial abnormality.. Chest X-Ray 07/10/18 19:02 CONCLUSION: Mild infiltrate and possible effusion on the right. Mild atelectasis of both bases. Head MRI 07/12/18 00:00 CONCLUSION: 1. Posterior fossa atrophy. No evidence of acute stroke, hemorrhage, mass or mass effect. Discharge Plan Discharge Disposition Patient Disposition: W/Home Health Service Discharge Condition Condition: Stable Discharge Order Discharge Orders: Discharge Order (Routine); Ordered 07/13/18 Ordered By: Geoffrey Paulino Discharge Details Anticipated Discharge Date: 07/13/18 Physicians Team Primary Care Provider: UNKNOWN, Attending Provider: Geoffrey Paulino Other Providers: Adilson De Anda ; Fallon Ferrera Rxs /Orders / Referrals /Forms Prescriptions: New lacosamide [Vimpat] 50 mg Tablet 50 mg PO BID Qty: 60 RF: 0 levetiracetam [Keppra] 500 mg tablet 500 mg PO Q12H Qty: 60 RF: 0 Lactobacillus acidophilus Capsule 500 mmu cells PO TID Qty: 15 RF: 0 levofloxacin [Levaquin] 500 mg tablet 500 mg PO DAILY 5 Days Qty: 5 RF: 0 No Action Unable to Obtain Home Meds RF: 0 Referrals: [facility], [Agency] - See Instructions UNKNOWN, [Primary Care Provider] - See Instructions Discharge Instructions Additional Instructions: HOME HEALTH CARE HAS BEEN ARRANGED WITH [facility], CONTACT#[phone] Status ED Status: Left Department
[2018-07-13 15:03] VITALS: BP 147/94; TEMP 98.7; O2SAT 95
[2018-07-13 15:45] VITALS: PULSE 79
== END 2018-07-13 15:56 | disposition home health service (06) ==
LOC: NEPE 18:42 → EDBD 22:01 → NEDA 22:01 → HCIS 07-11 01:23
PROVIDERS: ADMIT Hospitalist; ATTEND Hospitalist